=== PATIENT | female | born 1970 | race Caucasian/White ===

== ENCOUNTER 2016-12-02 09:24 | Emergency (ER) | payer OTHER ==
[2016-12-02] MEDS ORDERED: NS 0.9% 1000 ML* 1,000 ML IV ONE (10:31)
[2016-12-02] MEDS ORDERED: diPHENhydraMINE IV* 50 MG/ML 1 ml VIAL (BENADRYL) IM ONE (10:31)
[2016-12-02] MEDS ORDERED: Ondansetron INJ* 2 MG/ML VIAL IV ONE (10:31)
[2016-12-02] MEDS ORDERED: Ketorolac INJ* 30 MG/ML 1 ML VIAL IV ONE (10:31)
[2016-12-02] MEDS ORDERED: diPHENhydraMINE IV* 50 MG/ML 1 ml VIAL (BENADRYL) IV ONE (10:36)
[2016-12-02] MEDS ORDERED: Orphenadrine Citrate IV* 30 MG/ML 2 ML VIAL IV ONE (10:37)
[2016-12-02 10:58] LABS: Hematocrit 40 % (35-47); Hemoglobin 13.1 g/dl (12.0-16.0); Mean Corpuscular HGB Conc 33 g/dl (31-36); Mean Corpuscular Hemoglobin 28 pg (27-31); Mean Corpuscular Volume 84 fL (80-97); Mean Platelet Volume 8 um3 (7.4-10.4); Red Blood Count 4.73 10^6/ul (4.0-5.4); Red Cell Distribution Width 13 % (10.5-15); White Blood Count 10.7 10^3/ul (3.5-10.8)
[2016-12-02 11:08] LABS: Urine Bacteria Absent (Absent); Urine Bilirubin Negative (Negative); Urine Glucose Negative (Negative); Urine Nitrite Negative (Negative)
[2016-12-02 11:17] LABS: Albumin 4.1 g/dL (3.2-5.2); BUN/Creatinine Ratio 11.8 (8-20); Calcium 9.4 mg/dL (8.6-10.3); EGFR African American 105.4 (>60); EGFR Non-African American 81.9 (>60); Globulin 3.1 g/dL (2-4); Total Bilirubin 0.3 mg/dL (0.2-1.0); Total Protein 7.2 g/dL (6.4-8.9)
[2016-12-02 11:57] LABS: Erythrocyte Sed Rate 49 mm/Hr (0-14)
--- NOTE | 2016-12-02 12:14 | RAD ---
INDICATION: Fever, headache. COMPARISON: Comparison is made with a prior MRI of the brain from April 05, 2013. TECHNIQUE: Contiguous axial sections of the brain were obtained from the skull base to the vertex without contrast. FINDINGS: The ventricles, cisterns and sulci are within normal limits. No significant focal abnormality or mass effect is seen. There is no evidence for hemorrhage. No significant focal osseous abnormality is seen. The visualized portion of the paranasal sinuses and mastoid air cells appear clear. IMPRESSION: NO EVIDENCE FOR ACUTE INTRACRANIAL ABNORMALITY.
[2016-12-02 12:31] VITALS: BP 124/76
--- NOTE | 2016-12-02 12:33 | ED ---
Headache - HPI Summary HPI Summary: 46 female presents accompanied with her daughter with complaints of head pressure, stiff neck, knee pain, fever and rash. States this has been going on for the past week. Has tried taking 1-2 excedrin intermittently without much relief. States she has a red bug bite and some other red circular rashes on her right arm that she noticed a couple of days ago. Admits to being bit ~ 1 month ago by 3 ticks, however she removed them on her own. Denies seeing bullseye rash. Denies abdominal pain. Has had an episode of vomiting a couple of days ago and experience nausea Denies chest pain, memory or concentration loss and difficulty breathing. States fever has been on and off throughout past week and it comes and goes. Has not taken temp but felt feverish. Admits to fatigue and having some loss of appetite. Not experiencing a fever currently. Denies PMHx. Denies visual changes and photophobia. No history of migraines. No recent travel. Patient states she works outside often and has been doing some hard labor. Believes she may have just "over did it". - History Of Current Complaint Chief Complaint: EDGeneral Stated Complaint: FEVER/STIFF NECK Time Seen by Provider: 12/02/16 09:40 Hx Obtained From: Patient, Family/Cold Strip Feeder - daughter Onset/Duration: Sudden Onset, Started weeks ago - 1, Still Present, Worse Since Initially Headache Was: Mild Currently Pain Is: Current Pain Scale(0-10)= - 9, Moderate Timing: Constant Character: Pressure Location of Headache: Occipital, Other: - neck stiffness Aggravating Factor: Nothing Allevating Factors: Nothing Associated Signs And Symptoms: Fever, Neck Stiffness - Allergies/Home Medications Allergies/Adverse Reactions: Allergies Allergy/AdvReac Type Severity Reaction Status Date / Time No Known Allergies Allergy Verified 04/05/13 11:30 PMH/Surg Hx/FS Hx/Imm Hx Endocrine/Hematology History: Denies: Hx Diabetes Cardiovascular History: Denies: Hx Hypertension, Hx Pacemaker/ICD Respiratory History: Denies: Hx Asthma Sensory History: Denies: Hx Hearing Aid Psychiatric History: Denies: Hx Panic Disorder - Cancer History Hx Chemotherapy: No Hx Radiation Therapy: No - Surgical History Surgery Procedure, Year, and Place: n/a - Immunization History Immunizations Up to Date: Yes Infectious Disease History: No Infectious Disease History: Denies: Traveled Outside the [place] in Last 30 Days - Family History Known Family History: Positive: None - Social History Alcohol Use: Rare Substance Use Type: Reports: None Smoking Status (MU): Never Smoked Tobacco Review of Systems Positive: Fever, Chills, Fatigue Eyes: Negative ENT: Negative Cardiovascular: Negative Respiratory: Negative Positive: Nausea Positive: Arthralgia, Myalgia - neck, knee Positive: Rash Positive: Headache All Other Systems Reviewed And Are Negative: Yes Physical Exam Triage Information Reviewed: Yes Vital Signs On Initial Exam: Initial Vitals Temp Pulse Resp BP Pulse Ox 98.4 F 102 20 148/89 100 12/02/16 09:26 12/02/16 09:26 12/02/16 09:26 12/02/16 09:26 12/02/16 09:26 BP rechecked after sitting and resting upon getting put into room and was 125/ 76. slight tachycardia noted. Vital Signs Reviewed: Yes Appearance: Positive: Well-Appearing, No Pain Distress, Well-Nourished Skin: Positive: Warm, Skin Color Reflects Adequate Perfusion, Dry, Erythema @ - right proximal arm, mosquito bite noted, no sign of bullseye rash however 3-4 circular in shape flat macules, not raised, non tender. no discharge of FB no sign of ticks. Rest of skin exam normal. Head/Face: Positive: Normal Head/Face Inspection. Negative: Temporal Artery Tenderness, TMJ Tenderness, Scalp, Cephalohematoma Eyes: Positive: Normal, EOMI, LAURE, Conjunctiva Clear, Other: - normal visual acuity, no auras and normal fundoscopic exam from what was able to be visualized ENT: Positive: Normal ENT inspection, Hearing grossly normal, Pharynx normal, TMs normal. Negative: Trismus, Muffled/hoarse voice Dental: Positive: Cervical Lymphadenopathy Neck: Positive: Supple, Nontender Respiratory/Lung Sounds: Positive: Clear to Auscultation, Breath Sounds Present. Negative: Decreased Breath Sounds, Rales, Rhonchi, Stridor, Wheezes Cardiovascular: Positive: Normal, RRR, Pulses are Symmetrical in both Upper and Lower Extremities, Tachycardia. Negative: Murmur, Rub Abdomen Description: Positive: No Organomegaly, Soft, Other: - mildly uncomfortable upon palpation of abdomen diffusely, more tender at RUQ. Negative : Bruit, CVA Tenderness (R), CVA Tenderness (L), Distended, Guarding, McBurney' s Point Tenderness, Peritoneal Signs, Pulsatile Mass Bowel Sounds: Positive: Present Musculoskeletal: Positive: Normal, Strength/ROM Intact, Pain @ - right knee and neck however full ROM.. Negative: Limited @, Interruption @ Neurological: Positive: Normal - memory and concentration normal, Sensory/Motor Intact, Alert, Oriented to Person Place, Time, CN Intact II-III, Reflexes Intact , NV Bundle Intact Distally, Normal Gait, Finger to Nose - normal however patient was slow at preforming, Facial Symmetry, Speech Normal. Negative: Cerebellar Dysfunction, Facial Droop, Slurred Speech, Rhomberg Psychiatric: Positive: Normal, Affect/Mood Appropriate - patient had difficult time explaining her symptoms, AVPU Assessment: Alert - [place] Coma Scale Best Eye Response: 4 - Spontaneous Best Motor Response: 6 - Obeys Commands Best Verbal Response: 5 - Oriented Coma Scale Total: 15 Diagnostics - Vital Signs Vital Signs Temp Pulse Resp BP Pulse Ox 12/02/16 12:06 95 99 12/02/16 11:30 98 124/76 100 12/02/16 11:00 93 135/90 100 12/02/16 10:43 92 98 12/02/16 10:42 136/86 12/02/16 09:28 97.8 F 104 20 148/89 100 12/02/16 09:26 98.4 F 102 20 148/89 100 - Laboratory Lab Results: Lab Results 12/02/16 12/02/16 12/02/16 Range/Units 10:42 10:42 10:42 WBC 10.7 (3.5-10.8) 10^3/ul RBC 4.73 (4.0-5.4) 10^6/ul Hgb 13.1 (12.0-16.0) g/dl Hct 40 (35-47) % MCV 84 (80-97) fL MCH 28 (27-31) pg MCHC 33 (31-36) g/dl RDW 13 (10.5-15) % Plt Count 273 (150-450) 10^3/ul MPV 8 (7.4-10.4) um3 Neut % (Auto) 81.8 (38-83) % Lymph % (Auto) 9.2 L (25-47) % Gregory % (Auto) 7.9 (1-9) % Eos % (Auto) 0.4 (0-6) % Baso % (Auto) 0.7 (0-2) % Absolute Neuts (auto) 8.7 H (1.5-7.7) 10^3/ul Absolute Lymphs (auto) 1.0 (1.0-4.8) 10^3/ul Absolute Monos (auto) 0.8 (0-0.8) 10^3/ul Absolute Eos (auto) 0 (0-0.6) 10^3/ul Absolute Basos (auto) 0.1 (0-0.2) 10^3/ul Absolute Nucleated RBC 0 10^3/ul Nucleated RBC % 0 ESR 49 H (0-14) mm/Hr Sodium 133 (133-145) mmol/L Potassium 4.0 (3.5-5.0) mmol/L Chloride 102 (101-111) mmol/L Carbon Dioxide 24 (22-32) mmol/L Anion Gap 7 (2-11) mmol/L BUN 9 (6-24) mg/dL Creatinine 0.76 (0.51-0.95) mg/dL Est GFR ( Amer) 105.4 (>60) Est GFR (Non-Af Amer) 81.9 (>60) BUN/Creatinine Ratio 11.8 (8-20) Glucose 131 H (70-100) mg/dL Lactic Acid (0.5-2.0) mmol/L Calcium 9.4 (8.6-10.3) mg/dL Total Bilirubin 0.30 (0.2-1.0) mg/dL AST 71 H (13-39) U/L ALT 89 H (7-52) U/L Alkaline Phosphatase 131 H (34-104) U/L Total Protein 7.2 (6.4-8.9) g/dL Albumin 4.1 (3.2-5.2) g/dL Globulin 3.1 (2-4) g/dL Albumin/Globulin Ratio 1.3 (1-3) Urine Color Straw Urine Appearance Clear Urine pH 6.0 (5-9) Ur Specific [place] 1.004 L (1.010-1.030) Urine Protein Negative (Negative) Urine Ketones Negative (Negative) Urine Blood 1+ H (Negative) Urine Nitrate Negative (Negative) Urine Bilirubin Negative (Negative) Urine Urobilinogen Negative (Negative) Ur Leukocyte Esterase Negative (Negative) Urine WBC (Auto) Absent (Absent) Urine RBC (Auto) Trace(0-2/hpf) (Absent) Ur Squamous Epith Cells Present H (Absent) Urine Bacteria Absent (Absent) Urine Glucose Negative (Negative) 12/02/16 Range/Units 10:42 WBC (3.5-10.8) 10^3/ul RBC (4.0-5.4) 10^6/ul Hgb (12.0-16.0) g/dl Hct (35-47) % MCV (80-97) fL MCH (27-31) pg MCHC (31-36) g/dl RDW (10.5-15) % Plt Count (150-450) 10^3/ul MPV (7.4-10.4) um3 Neut % (Auto) (38-83) % Lymph % (Auto) (25-47) % Gregory % (Auto) (1-9) % Eos % (Auto) (0-6) % Baso % (Auto) (0-2) % Absolute Neuts (auto) (1.5-7.7) 10^3/ul Absolute Lymphs (auto) (1.0-4.8) 10^3/ul Absolute Monos (auto) (0-0.8) 10^3/ul Absolute Eos (auto) (0-0.6) 10^3/ul Absolute Basos (auto) (0-0.2) 10^3/ul Absolute Nucleated RBC 10^3/ul Nucleated RBC % ESR (0-14) mm/Hr Sodium (133-145) mmol/L Potassium (3.5-5.0) mmol/L Chloride (101-111) mmol/L Carbon Dioxide (22-32) mmol/L Anion Gap (2-11) mmol/L BUN (6-24) mg/dL Creatinine (0.51-0.95) mg/dL Est GFR ( Amer) (>60) Est GFR (Non-Af Amer) (>60) BUN/Creatinine Ratio (8-20) Glucose (70-100) mg/dL Lactic Acid 1.1 (0.5-2.0) mmol/L Calcium (8.6-10.3) mg/dL Total Bilirubin (0.2-1.0) mg/dL AST (13-39) U/L ALT (7-52) U/L Alkaline Phosphatase (34-104) U/L Total Protein (6.4-8.9) g/dL Albumin (3.2-5.2) g/dL Globulin (2-4) g/dL Albumin/Globulin Ratio (1-3) Urine Color Urine Appearance Urine pH (5-9) Ur Specific [place] (1.010-1.030) Urine Protein (Negative) Urine Ketones (Negative) Urine Blood (Negative) Urine Nitrate (Negative) Urine Bilirubin (Negative) Urine Urobilinogen (Negative) Ur Leukocyte Esterase (Negative) Urine WBC (Auto) (Absent) Urine RBC (Auto) (Absent) Ur Squamous Epith Cells (Absent) Urine Bacteria (Absent) Urine Glucose (Negative) Result Diagrams: 12/02/16 10:42 12/02/16 10:42 Lab Statement: Any lab studies that have been ordered have been reviewed, and results considered in the medical decision making process. - CT brain CT Interpretation: No Acute Changes - NO EVIDENCE FOR ACUTE INTRACRANIAL ABNORMALITY. CT Interpretation Completed By: Radiologist Re-Evaluation - Re-Evaluation First Eval Re-Evaluation Time: 12:30 Change: Unchanged Comment: after medications administered patient did not have any change in her symptoms Second Eval Re-Evaluation Time: 14:00 Change: Unchanged - patient was still feeling pressure in her neck and head. updated on labs and CT scan results. Headache Course/Dx - Course Course Of Treatment: labs and ct brain obtained. all labs were normal without WBC, no fever and normal vitals. Did have slight elevation of liver enzymes. CT brain negative. PE findings were unremarkable besides rash/bug bite and some mild RUQ discomfort on palpation. Due to history, PE findings and complaint of symptoms appears patient may be suffering from an acute infection of lyme disease. labs were drawn for lyme, [place] and hepatitis , pending results. Patient given muscle relaxer, NSAID and fluids without much relief. Due to patient being stable and normal labs was decided she be d/c and wait for pending lyme, [place] and hetpatitis results obtained. Continue NSAID at home for arthralgias. Watch rash. Follow up with PCP within the next 3-5 days. Pending results for lyme patient will not start treatment at this time due to patient preference adn discussing option of waiting for serology results. Spoke with Dr Villa about assessment/plan. - Diagnoses Differential Diagnosis/HQI/PQRI: Meningitis, Sinus Headache, Tension Headache, Viral Syndrome, Other - lyme disease, [place], muscle strain Provider Diagnoses: Neck pain, musculoskeletal, Knee pain, Rash, Tick bite - Physician Notifications Discussed Care Of Patient With: Dr Villa Discharge - Discharge Plan Condition: Stable Disposition: HOME Prescriptions: Cyclobenzaprine TAB* [Flexeril 10 MG TAB*] 10 mg PO BEDTIME #10 tab DOXYcycline CAP(*) [DOXYcycline 100MG CAP(*)] 100 mg PO BID #42 cap Naproxen TAB* [Naprosyn 375 mg TAB*] 375 mg PO BID #30 tab Patient Education Materials: Lyme Disease (ED), Neck Pain (ED), Tension Headache (ED) Referrals: Sebastián Mary MD [Primary Care Provider] - Additional Instructions: Take prescribed Naproxen and Flexeril to help with muscle tightness, pain and inflammation. Do not drive while taking Flexeril as it may make you drowsy. Rest, drink plenty of fluids. Apply ice/heat to neck. Follow up with primary care provider. If symptoms worsen or do not improve, OR new symptoms develop as we discussed please return to ED immediately.
[2016-12-05 10:30] LABS: Lyme Disease IgG Ab WB Negative (Negative)
--- NOTE | 2016-12-06 11:18 | PN ---
Progress Note - Progress Note Note: Lyme serology results obtained and were positive. Spoke with patient via telephone at 9:43 am discussed results and treatment plan. Patient states her symptoms have not really changed, she has some relief from naproxen. She admits to having more of the red rash spots developing and some have become tender. Has an appointment with her PCP today at 12:50. Also informed of negative hepatitis and [place] still pending. Called in doxycycline 100mg BID x 21 days. Instructed on importance of close follow up with PCP. Repeat testing and additional treatment may be warranted in the future. Aware of side effects od doxycycline and recommended taking probiotics in between doses. Aware of worsening signs and symptoms. Educated on lyme disease. No further action or changes needed at this time.
== END 2016-12-02 13:36 | disposition home or self-care (01) ==
LOC: ED 09:24
DX: G44.209 Tension-type headache, unspecified, not intractable (principal); M54.2 Cervicalgia
CPT/HCPCS: 36415; 70450; 80053; 80074; 81003; 81015; 83605; 85025; 85652; 86617; 86618; 86788; 86789; 96374; 96375; 99282; J1885; J2360

== ENCOUNTER 2023-02-15 12:25 | Observation (INO) ==
[2023-02-15] MEDS ORDERED: NS 0.9% 1000 ml BAG 1,000 ML IV ONE (13:06)
[2023-02-15 13:23] LABS: ABS Basophils 0.1 10^3/uL (0.0-0.1); ABS Lymphocytes 1.1 10^3/uL (1.0-4.8); ABS Monocytes 0.6 10^3/uL (0.0-0.9); ABS Neutrophils 7.6 10^3/uL (1.5-7.6); Eosinophil % 0.3 %; Hematocrit 37.2 % (35-45); Hemoglobin 12.8 g/dL (11.5-14.3); Lymphocyte % 11.3 %; Mean Corpuscular Hemoglobin 28.9 pg (27-33); Mean Corpuscular Hgb Conc 34.4 g/dL (31-36); Mean Corpuscular Volume 84.1 fL (80-97); Mean Platelet Volume 7.5 fL (7.5-11.2); Platelet Count 415 10^3/uL (150-450); Red Blood Count 4.42 10^6/uL (3.63-4.92); Red Cell Distribution Width 13.3 % (12-17); White Blood Count 9.4 10^3/uL (3.8-11.8)
[2023-02-15 13:43] LABS: Albumin 4.4 g/dL (3.2-5.2); Creatinine, Serum 0.79 mg/dL (0.51-0.95); Globulin 2.2 g/dL (2-4); Magnesium 1.9 mg/dL (1.9-2.7); Phosphorus 2.5 mg/dL (2.5-5.0); Potassium 3.9 mmol/L (3.5-5.0); Total Bilirubin 0.3 mg/dL (0.2-1.0); Total Protein 6.6 g/dL (6.4-8.9); eGFR CKD-EPI 89.9 (>60)
[2023-02-15] MEDS ORDERED: Labetalol IV 5 MG/ML 20 ml VIAL IV PUSH ONE (13:51)
[2023-02-15 14:09] LABS: Urine Appearance Clear; Urine Bilirubin Negative (Negative); Urine Blood Negative (Negative); Urine Color Colorless; Urine Glucose Negative (Negative); Urine Ketones Negative (Negative); Urine Nitrite Negative (Negative); Urine Protein Negative (Negative); Urine Specific Gravity 1.003 (1.002-1.030); Urine Urobilinogen Negative (Negative)
[2023-02-15] MEDS ORDERED: Iodixanol (CONTRAST) 320 MG/ML 100 ML SDV IV ONE (14:24)
[2023-02-15 14:46] LABS: Activated Partial Thrombo Time 27.2 seconds (26.0-38.0); INR 1.13 (0.83-1.13)
[2023-02-15 14:51] LABS: Albumin 3.9 g/dL (3.2-5.2); Calcium 8.1 mg/dL (8.6-10.3); Creatinine, Serum 0.76 mg/dL (0.51-0.95); Direct Bilirubin 0.1 mg/dL (0.03-0.18); HDL Cholesterol 46.5 mg/dL; Indirect Bilirubin 0.2 mg/dL (0.3-1.0); Potassium 3.8 mmol/L (3.5-5.0); Total Bilirubin 0.3 mg/dL (0.2-1.0); Total Protein 5.9 g/dL (6.4-8.9); eGFR CKD-EPI 94.2 (>60)
[2023-02-15] MEDS ORDERED: Labetalol IV 5 MG/ML 20 ml VIAL IV PUSH PRN (15:45)
[2023-02-15 18:53] LABS: TSH Ultra Thyroid Stim Horm 3.23 mcIU/mL (0.34-5.60)
[2023-02-15 19:07] LABS: Vitamin D Total 25(OH) 29.5 ng/mL (20-50)
[2023-02-16 06:34] LABS: ABS Basophils 0.1 10^3/uL (0.0-0.1); ABS Eosinophils 0.1 10^3/uL (0.0-0.5); ABS Lymphocytes 1.7 10^3/uL (1.0-4.8); ABS Monocytes 0.7 10^3/uL (0.0-0.9); ABS Neutrophils 7.4 10^3/uL (1.5-7.6); Eosinophil % 0.9 %; Hematocrit 36.6 % (35-45); Hemoglobin 12.6 g/dL (11.5-14.3); Lymphocyte % 17.1 %; Mean Corpuscular Hgb Conc 34.4 g/dL (31-36); Mean Corpuscular Volume 84.2 fL (80-97); Mean Platelet Volume 7.6 fL (7.5-11.2); Platelet Count 405 10^3/uL (150-450); Red Blood Count 4.35 10^6/uL (3.63-4.92); Red Cell Distribution Width 13.3 % (12-17)
[2023-02-16 06:51] LABS: Calcium 8.5 mg/dL (8.6-10.3); Creatinine, Serum 0.83 mg/dL (0.51-0.95); Magnesium 1.9 mg/dL (1.9-2.7); Potassium 3.7 mmol/L (3.5-5.0); eGFR CKD-EPI 84.8 (>60)
[2023-02-16 12:18] VITALS: BP 136/70
== END 2023-02-16 13:13 | disposition home or self-care (01) ==
LOC: ED 12:25 → EDHOLD 12:25 → SUATTDRO 14:53 → MEDTELE 16:11
PROVIDERS: ADMIT Internal Medicine; ATTEND Internal Medicine